=== PATIENT | male | born 1965 | race Two or more races ===

== ENCOUNTER 2017-12-28 01:06 | Emergency (ER) | payer OTHER ==
[~2017-12-28] VITALS: Ht 175.3 cm; Wt 93.0 kg
[2017-12-28] MEDS ORDERED: ATORVASTATIN CA10 MG (01:20)
[2017-12-28] MEDS ORDERED: ALTACE5 MG (01:20)
[2017-12-28] MEDS ORDERED: FORTAMET1000 MG (01:20)
== END 2017-12-28 11:37 | disposition home or self-care (01) ==
LOC: ER 01:06
DX: K57.30 Diverticulosis of large intestine without perforation or abscess without bleeding (principal); K80.20 Calculus of gallbladder without cholecystitis without obstruction; R10.32 Left lower quadrant pain

== ENCOUNTER 2018-02-03 15:20 | Emergency (ER) | payer OTHER ==
[~2018-02-03] VITALS: Ht 175.3 cm; Wt 90.7 kg
[~2018-02-03 15:20] MED LIST: ALTACE5 MG; ATORVASTATIN CA10 MG; FORTAMET1000 MG
== END 2018-02-03 19:16 | disposition home or self-care (01) ==
LOC: ER 15:20
DX: R10.12 Left upper quadrant pain (principal)